=== PATIENT | female | born 1990 | race Caucasian/White ===

== ENCOUNTER 2022-09-20 07:59 | Outpatient (CLI) | payer BC, SELFPAY ==
--- NOTE | 2022-10-11 17:26 | WPDHOMESLEEP ---
Sleep Study - Home Unattended Date of Study: 09/20/22 Ordering Provider: Josi Banks MD Interpreting Provider: Daily Felix, DO Home Sleep Study Type: Apnea Link Air Height: 1.73 m Weight: 54.431 kg Body Mass Index: 18.2 Neck Circumference (inches): 12.75 [place]: 4 Reason for Sleep Study Snoring, witnessed apneas Sleep History The patient is a 32-year-old female with seasonal allergies, fibroadenomas of breast tissue and snoring that had a sleep study ordered by her primary care physician for evaluation of sleep apnea. The patient denies awakening from sleep short of breath. She denies awakening at night with heartburn, belching or cough. She constantly snores loud enough that others complain. She occasionally has trouble sleeping when she has a cold. She denies waking up gasping for air throughout the night. She occasionally has breathing problems at night observed by herself or others. She frequently sweats excessively at night. She denies having heart palpitations or irregular heartbeats during the night. She rarely falls asleep during the day but never while driving. She denies sleep paralysis, cataplexy and hypnagogic / hypnopompic hallucinations. She denies having trouble at school or work due to sleepiness. She denies feeling afraid of going to sleep. She rarely has nightmares. She occasionally remembers her dreams. She occasionally has thoughts racing through her mind. She denies feeling sad or depressed. She rarely has anxiety. She denies having muscular tension. She rarely notices parts of her body jerk. She denies kicking during the night. She rarely has crawling and aching feelings in her legs. She denies having leg pain during the night. She frequently grinds her teeth during sleep but never awakens with morning jaw pain. She denies being bothered by pain during the day and denies being awakened by pain during the night. She occasionally wakes up feeling stiff in the morning. She occasionally wakes up with sore or achy muscles. She occasionally wakes up with pain in the neck, spine or other joints. She goes to bed at 9:00 p.m. on weekdays and between 9-10 p.m. on the weekends. It takes her 30 minutes to fall asleep. She wakes up 1-2 times throughout the night for unknown reasons. She is able to fall back asleep within 5 minutes. She wakes up at 6:00 a.m. on weekdays and at 7:00 a.m. on the weekends. She typically gets 9 hours of sleep per night. She will stay in bed for 30 minutes up to an hour after waking up in the morning. She currently lives with her and daughter. She does not consume any caffeinated beverages within 2 hours of bedtime. She does not engage in physical exercise before bedtime. She will read and watch television before falling asleep. She denies taking naps in the afternoon or the evening. She drinks 12 oz of caffeinated soda per day. She denies tobacco, alcohol and recreational drug use. Sleep Procedure This test was performed using 4 channel monitoring including respiratory effort channel, snoring channel, heart rate channel, and oxygen saturation channel. This study was scored using [facility] guidelines. Sleep Architecture The patient had a total recording time of 8 hours 58 minutes and total monitoring time of 8 hours 41 minutes. The patient spent 7 hours 26 minutes, 85.7% of total monitoring time in the supine position. Respiratory Analysis The patient had an overall AHI of 3.3 and a central apnea index of 0.2. The supine AHI was 3.5. The patient had 14 apneas and 15 hypopneas. No Johann-Ortiz respirations were seen. Oximetry Data The patient had a baseline oxygen saturation of 100% and an average oxygen saturation of 97%. The lowest recorded oxygen saturation was 89%. The patient had 19 desaturations that were 4% or greater resulting in an oxygen desaturation index of 2.2. The patient spent 0 minutes with an oxygen saturation less than 88%. Snoring Profi
[2022-10-11 17:38] VITALS: BMI 18.2
== END 2022-09-21 09:24 | disposition home or self-care (01) ==
LOC: ANHCSM 08:00
PROVIDERS: PCP Internal Medicine; Visit Provider Internal Medicine
DX: R06.83 Snoring (principal); R06.81 Apnea, not elsewhere classified
CPT/HCPCS: 95806

== ENCOUNTER 2024-10-23 12:49 | Outpatient (CLI) | payer BC, SELFPAY ==
--- NOTE | ~2024-10-23 | XR_ITS ---
HISTORY: R22.30 - Localized swelling, mass and lump, unspecified u... COMPARISON: None TECHNIQUE: 2 views of the left shoulder were performed FINDINGS: No acute fracture. The glenohumeral and acromioclavicular joint space is maintained The visualized portion of the adjacent left lung is clear. The humeral head is well seated within the glenoid fossa. IMPRESSION: No acute fracture or anterior dislocation. Reviewed, dictated and finalized at location A. [employer]
--- NOTE | ~2024-10-23 | US_ITS ---
EXAM: Focused ultrasound examination of the soft tissues of the left shoulder HISTORY: R22.30 - Localized swelling, mass and lump, unspecified u... TECHNIQUE: Sonographic evaluation of the soft tissues of the left shoulder were performed assessing g rayscale appearance and color Doppler flow. COMPARISON: Reference is made to plain film evaluation of the left shoulder, performed the same day. FINDINGS: Within the area of clinical concern is a well-circumscribed focus of mixed echogenicity measuring 8 x 4 x 6 mm. Trace vascularity is noted. Sonographic evaluation of the remainder of the soft tissues of the left shoulder demonstrates otherwi se benign fibrofatty and fibromuscular elements without a cystic or solid lesion of concern. IMPRESSION: Focused ultrasound examination of the anterior margin of the left shoulder demonstrate findings which may represent a lipoma, subcentimeter in size. If clinical suspicion persists, cross-sectional imaging (contrast-enhanced MRI examination) may be pe rformed for further evaluation. Reviewed, dictated and finalized at location A. [employer] IMPRESSION: Focused ultrasound examination of the anterior margin of the left shoulder demo nstrate findings which may represent a lipoma, subcentimeter in size. If clinical suspicion persists, cross-sectional imaging (contrast-enhanced MRI examination) may be performed for further evaluation.
== END 2024-10-23 12:50 | disposition home or self-care (01) ==
LOC: MICIMG 12:50
PROVIDERS: PCP Family Medicine; Visit Provider Family Medicine
DX: R22.30 Localized swelling, mass and lump, unspecified upper limb (principal)
CPT/HCPCS: 73030; 76882